=== PATIENT | male | born 1990 | race Caucasian/White ===

== ENCOUNTER 2017-03-18 07:38 | Day surgery (SDC) | payer MEDICAID ==
[~2017-03-18] VITALS: Ht 170.2 cm; Wt 59.0 kg
[2017-03-18] MEDS ORDERED: LACTATED RINGERS 1,000 ML IV SCH (09:00)
[2017-03-18] MEDS ORDERED: FENTANYL CITRATE/PF 50MCG/ML 2ML VIAL IV PRN (10:00)
[2017-03-18] MEDS ORDERED: ONDANSETRON HCL 4MG/2ML VIAL IV PRN (10:00)
[2017-03-18] MEDS ORDERED: PROPOFOL 200MG/20ML VIAL IV ONE ×2 (10:18→10:19)
[2017-03-18] MEDS ORDERED: LIDOCAINE HCL 1% 20ML VIAL (Pyxis) INJ ONE (10:19)
[2017-03-18] MEDS ORDERED: OMEG-95 PO (11:27)
[2017-03-18] MEDS ORDERED: MULT-8 PO (11:27)
[2017-03-18] MEDS ORDERED: MULT-1146 PO (11:27)
[2017-03-18] MEDS ORDERED: CALC600T12 PO (11:27)
== END 2017-03-18 12:00 | disposition home or self-care (01) ==
LOC: OR 07:38
PROVIDERS: ATTEND Internal Medicine Gastroenterology
DX: K59.00 Constipation, unspecified (principal); K64.8 Other hemorrhoids; F84.0 Autistic disorder
CPT/HCPCS: 45378; J3490; J7120; J2704